=== PATIENT | female | born 1980 | race Caucasian/White ===

== ENCOUNTER 2016-10-24 10:04 | Outpatient (CLI) | payer BC ==
[~2016-10-24 10:04] MED LIST: NS 1,000 ML IV SCH
[2016-10-24] MEDS ORDERED: NA BICARBONATE 50 MEQ/50 ML VIAL ONE (10:58)
[2016-10-24] MEDS ORDERED: LIDOCAINE 1% 30 ML SDV ONE (10:58)
[2016-10-24] MEDS ORDERED: BUPIVACAINE 0.25% 30 ML SDV ONE (10:59)
[2016-10-24] MEDS ORDERED: FLUMAZENIL 0.5 MG/5 ML MDV IVP ONE (11:35)
[2016-10-24] MEDS ORDERED: ONDANSETRON 4 MG/2 ML VIAL ONE (11:35)
[2016-10-24] MEDS ORDERED: NALOXONE HCL 0.4 MG/ML INJ ONE (11:36)
[2016-10-24] MEDS ORDERED: fentaNYL 100 MCG/2 ML INJ ONE (11:36)
[2016-10-24] MEDS ORDERED: MIDAZOLAM 2 MG/2 ML VIAL ONE (11:36)
[2016-10-24] MEDS ORDERED: HYDROmorphONE/DILAUDID 2 MG/ML INJ ONE ×2 (13:07→13:59)
[2016-10-24] MEDS ORDERED: HYDROmorphONE/DILAUDID 1 MG/ML SYR IVP ONE (13:12)
[2016-10-24] MEDS ORDERED: OXYCODONE/APAP 5/325 TAB ONE (14:09)
[2016-10-24] MEDS ORDERED: oxyCODONE IR 5 MG TAB ONE (14:13)
== END 2016-10-24 15:55 | disposition home or self-care (01) ==
LOC: FIMAGING 10:04
PROVIDERS: ATTEND Radiology Diagnostic Radiology
PROC: 0FB13ZX Excision of Right Lobe Liver, Percutaneous Approach, Diagnostic (ICD-10-PCS; principal; 2016-10-24 12:55)
DX: K75.9 Inflammatory liver disease, unspecified (principal)
CPT/HCPCS: J1170; J2250; J2310; J2405; J3010